=== PATIENT | male | born 2000 | race Caucasian/White ===

== ENCOUNTER 2024-01-01 03:59 | Emergency (ER) | payer MEDICAID ==
[~2024-01-01] VITALS: Ht 170.2 cm; Wt 79.5 kg
[2024-01-01 08:26] LABS: EOSINOPHILS % (AUTO) 0.3 % (0-6)
[2024-01-01 08:28] LABS: BASOPHILS % (AUTO) 0.5 % (0-1); HEMATOCRIT 45.8 % (42.0-52.0); HEMOGLOBIN 15.5 g/dl (14.0-17.9); LYMPHOCYTES # (AUTO) 1.8 X10'3 (1.1-4.8); LYMPHOCYTES % (AUTO) 20.3 % (21-51); MEAN CORPUSCULAR HEMOGLOBIN 29.3 PG (27.0-31.0); MEAN CORPUSCULAR HGB CONC 33.8 g/dL (33.0-36.5); MEAN CORPUSCULAR VOLUME 86.8 FL (78-98); MONOCYTES # (AUTO) 0.6 X10'3 (0-0.9); MONOCYTES % (AUTO) 6.6 % (2-12); NEUTROPHILS # (AUTO) 6.5 X10'3 (1.8-7.7); NEUTROPHILS % (AUTO) 72.3 % (42-75); PLATELET COUNT 228 X10'3 (140-440); RED BLOOD COUNT 5.27 X10'6 (4.70-6.10); RED CELL DISTRIBUTION WIDTH 12.9 % (11.5-14.5); WHITE BLOOD COUNT 9.1 X10'3 (4.5-11.0)
[2024-01-01 09:05] LABS: URINE AMPHETAMINE SCREEN NEGATIVE (Neg); URINE BARBITUATE SCREEN NEGATIVE (Neg); URINE BENZODIAZEPINES SCREEN NEGATIVE (Neg); URINE CANNABINOID SCREEN POSITIVE (Neg); URINE COCAINE SCREEN POSITIVE (Neg); URINE METHADONE SCREEN NEGATIVE (Neg); URINE OPIATE SCREEN NEGATIVE (Neg); URINE PHENCYCLIDINE SCREEN NEGATIVE (Neg)
[2024-01-01 09:18] LABS: ALBUMIN 4.1 G/DL (3.4-5.0); ANION GAP 8 (8-16); BLOOD UREA NITROGEN 10 MG/DL (7-18); BUN/CREATININE RATIO 10.4 (10.0-20.0); CALCIUM 9.5 MG/DL (8.5-10.1); CHLORIDE 101 MMOL/L (99-107); CREATININE 0.96 MG/DL (0.60-1.10); GLUCOSE 108 MG/DL (70-104); POTASSIUM 4.4 MMOL/L (3.5-5.1); SODIUM 139 MMOL/L (135-145); TOTAL CARBON DIOXIDE 30.4 MMOL/L (24-32); eCRCL 114 ML/MIN; eGFR > 90 ML/MIN
[2024-01-01 09:20] LABS: ETHANOL < 10 MG/DL (<10)
[2024-01-01 10:03] LABS: BILIRUBIN,URINE NEGATIVE (Neg); CLARITY,URINE CLOUDY (Clear); COLOR,URINE YELLOW (Yellow); GLUCOSE, URINE NEGATIVE (Neg); KETONES,URINE NEGATIVE (Neg); LEUKOCYTE ESTERASE ,URINE NEGATIVE (Neg); NITRITES, URINE NEGATIVE (Neg); OCCULT BLOOD,URINE NEGATIVE (Neg); PROTEIN,URINE NEGATIVE (Neg); UROBILINOGEN,URINE 0.2 E.U/dL (0.2-1.0)
[2024-01-01 10:07] LABS: UA COLLECTION TYPE NON-SPECIFIED
[2024-01-01 10:09] LABS: AMORPHOUS URATES 2+
[2024-01-01 10:10] LABS: BACTERIA,URINE FEW /HPF (Neg); MUCUS STRANDS MODERATE /LPF (Neg); RBC,URINE 0-2 /HPF (0-2); SQUAMOUS EPITHELIAL CELL,UR FEW /LPF (FEW); WBC,URINE 0-4 /HPF (0-4)
[2024-01-01] MEDS: docusate sod 100mg capsule PO ONE (19:55)
[2024-01-01] MEDS: docusate sod 250mg capsule PO ONE (19:56)
[2024-01-01] MEDS: acetaminophen 325mg tablet PO ONE (19:57)
[2024-01-01] MEDS: Melatonin 3mg tablet PO SCH (21:45)
[2024-01-02] MEDS: LORazepam 2 mg/ml vial IM ONE (12:53)
[2024-01-02] MEDS: haloperidol lactate 5mg/ml inj IM ONE (12:54)
[2024-01-02] MEDS: diphenhydrAMINE 50 mg/ml inj IM ONE (12:54)
[2024-01-02] MEDS ORDERED: haloperidol 5mg tablet PO PRN (13:40)
[2024-01-02] MEDS ORDERED: NO HOME MEDS (19:29)
[2024-01-03 17:37] VITALS: TEMP 98.2
[2024-01-03] MEDS: LORazepam 1 MG tablet PO PRN (19:14)
[2024-01-04 05:37] VITALS: BP 120/91; PULSE 65; O2SAT 98
[2024-01-04] MEDS: nicotine 21mg patch - 24 hr TD SCH (10:56)
[2024-01-04 11:00] VITALS: RESP 15
== END 2024-01-04 14:30 ==
LOC: ER 03:59
DX: F23 Brief psychotic disorder (principal); R41.0 Disorientation, unspecified; Z20.822 Contact with and (suspected) exposure to COVID-19
CPT/HCPCS: 36415; 70450; 80048; 80305; 80320; 81001; 85025; 87811; 96372; 99285; C2617; J1200; J1630; J2060

== ENCOUNTER 2025-04-10 14:49 | Emergency (ER) | payer MEDICAID ==
[~2025-04-10] VITALS: Ht 170.2 cm; Wt 57.8 kg
[~2025-04-10 14:49] MED LIST: NO HOME MEDS
--- NOTE | 2025-04-10 14:57 | Physician Documentation ---
History of Present Illness ~ Chief Complaint: Mental Health Eval Stated Complaint: MH Time Seen by MD: 15:05 OK to notify your PCP?: Yes Primary Medical Doctor: valery Source: patient Mode of Arrival: POV Exam Limitations: no limitations HPI 25-year-old male presents with mental health complaints of feeling stressed out and having his past come back up. He reports that people have been following him and talking about his past. He states that he has not taken any medications for mental health disorders. He has not been formally diagnosed with schizophrenia. He appears to be having visual hallucinations but no auditory hallucinations. He states that he has been seen by mental health last month but this is a different situation. He has thoughts of harming himself but does not have an active plan. Medication Reconciliation Allergies: Coded Allergies: No Known Allergies (Unverified , 02/19/25) Miscellaneous Medications Home Med List (No Home Medications), (Reported) Past Medical History Past Medical History: Schizophrenia Past Surgical History: noncontributory Review of Systems All Other Systems at this time: Reviewed and Negative Physical Exam Vital Signs: RN Vital Signs have been reviewed: Yes, Temperature: 97.7, Source: Temporal, Heart Rate: 107, Respiratory Rate: 16, BP: 143/89, Pulse Oximetry: 98, Weight: 57.750 Pulse Oximetry Reflects: adequate oxygenation Physical Exam General: Alert, no distress. HEENT: No injection, moist mucous membranes. Neck: Full range of motion. Respiratory: No respiratory distress, equal chest rise and fall. Chest: No accessory muscle use. Cardiovascular: Regular rate and rhythm. Gastrointestinal: Nondistended. Extremities: Normal range of motion, no deformity. Neurologic: Oriented x4. Psychiatric: Normal mood and affect. Skin: Normal color, warm and dry. Progress Results/Orders Results/Orders Vital Signs 04/10/25 04/10/25 04/10/25 04/11/25 14:51 15:18 18:45 05:23 Temp 97.7 97.0 Pulse 107 60 Resp 16 16 17 B/P (MAP) 143/89 107/71 (83) Pulse Ox 98 99 O2 Flow Rate 0 04/11/25 04/11/25 04/11/25 04/12/25 13:22 17:33 18:44 05:05 Temp 97.8 97.2 Pulse 83 54 Resp 16 14 14 B/P (MAP) 117/76 (90) 103/63 (76) Pulse Ox 99 98 O2 Flow Rate 0 04/12/25 08:45 Resp 16 B/P (MAP) Laboratory Tests Test 04/10/25 15:54 04/10/25 17:41 04/10/25 17:58 White Blood Count 5.4 Red Blood Count 4.62 L Hemoglobin 13.3 L Hematocrit 39.2 L Mean Corpuscular Volume 84.9 Mean Corpuscular Hemoglobin 28.8 Mean Corpuscular Hemoglobin Concent 33.9 Red Cell Distribution Width 14.6 H Platelet Count 230 Mean Platelet Volume 10.4 Neutrophils (%) (Auto) 57.5 Lymphocytes (%) (Auto) 29.9 Monocytes (%) (Auto) 9.5 Eosinophils (%) (Auto) 2.4 Basophils (%) (Auto) 0.7 Neutrophils # (Auto) 3.1 Lymphocytes # (Auto) 1.6 Monocytes # (Auto) 0.5 Eosinophils # (Auto) 0.1 Basophils # (Auto) 0.0 CBC Comment Sodium Level 138 Potassium Level 3.0 *L Chloride Level 102 Carbon Dioxide Level 30.3 Anion Gap 6 L Blood Urea Nitrogen 5 L Creatinine 1.04 Estimated GFR/1.73 m2 89 BUN/Creatinine Ratio 4.8 L Glucose Level 136 H Calcium Level 9.1 Albumin 3.3 L Thyroid Stimulating Hormone (TSH) 1.30 Chemistry Comments Ethyl Alcohol Level < 10 Urine Specimen Description Cln catch midstream Urine Color Yellow Urine Clarity Clear Urine pH 6.0 Urine Specific [place] 1.020 Urine Protein Negative Urine Glucose (UA) Negative Urine Ketones Negative Urine Occult Blood Negative Urine Nitrite Negative Urine Bilirubin Negative Urine Urobilinogen 4.0 H Urine Leukocyte Esterase Negative Volume Urine Centrifuged 10 ml Urine Comment Urine Opiates Screen Negative Urine Methadone Screen Negative Urine Fentanyl Screen Negative Urine Barbiturates Screen Negative Urine Phencyclidine Screen Negative Urine Amphetamines Screen Positive Urine Benzodiazepines Screen Negative Urine Cocaine Screen Negative Urine Cannabinoids Screen Negative Drug Screen Comment SARS-CoV-2 Antigen (Rapid) Negative Medical Decision Making Findings Today at 09:51 hours Clinical Status:unchanged Mental Status: Appearance: No change Behavior: Stable Mood/Affect: No change Thought Process: No change Insight/Judgment: No change Suicidal/Homicidal Ideation: Continues to be on hold Vital signs stable Physical Examination: Unchanged Medications Administered: None Treatment Plan: Continue to monitor Continue current medications Reassess for changes in mental status Plan for next steps (e.g., awaiting placement, consulting psychiatry, etc.) Disposition: Not determine yet Patient remains on hold for psychiatric evaluation/placement. No acute changes in condition. Patient remains cooperative Plan to reassess during next shift. April 12, 2025 The patient is accepted at [facility] for further evaluation and treatment. Departure Impression: Primary Impression: Depression Condition: Stable Additional Instructions: Transfer orders for [facility]: At this time there is no evidence of an emergent medical condition that would preclude (admission/transfer) to a psychiatric unit via [facility] protocol for further psychiatric, as well as medical evaluation and treatment. At this time I have no reason to believe that transfer via [facility] protocol would have serious medical compromise in the patient's health. Referrals: NO PRIMARY CARE PROVIDER (PCP) Additional Comment Medical Screen Exam This patient recieved a medical screening examination. After reviewing the individual's medical complaints with presenting symptoms and performing an appropriate physical examination, it was determined that no immediate life- threatening emergency medical condition is present. This individual is also not a women having contractions. Signature Scribe Signature: g Attestation: Scribed for Jessica Ambrose Speech Language Pathology Assistant by Jessica Yoo NP . 04/11/25 13:38 NAKUL DARBY Apr 10, 2025 14:57 JESSICA AMBROSE NP Apr 10, 2025 17:17 ALMAZ CHURCH MD Apr 11, 2025 09:52
[2025-04-10 16:06] LABS: EOSINOPHILS # (AUTO) 0.1 X10'3 (0-0.9); MONOCYTES # (AUTO) 0.5 X10'3 (0-0.9)
[2025-04-10 16:15] LABS: BASOPHILS % (AUTO) 0.7 % (0-1); EOSINOPHILS % (AUTO) 2.4 % (0-6); HEMATOCRIT 39.2 % (42.0-52.0); HEMOGLOBIN 13.3 g/dl (14.0-17.9); LYMPHOCYTES # (AUTO) 1.6 X10'3 (1.1-4.8); LYMPHOCYTES % (AUTO) 29.9 % (21-51); MEAN CORPUSCULAR HEMOGLOBIN 28.8 PG (27.0-31.0); MEAN CORPUSCULAR HGB CONC 33.9 g/dL (33.0-36.5); MEAN CORPUSCULAR VOLUME 84.9 FL (78-98); MEAN PLATELET VOLUME 10.4 FL (7.4-10.4); MONOCYTES % (AUTO) 9.5 % (2-12); NEUTROPHILS # (AUTO) 3.1 X10'3 (1.8-7.7); NEUTROPHILS % (AUTO) 57.5 % (42-75); PLATELET COUNT 230 X10'3 (140-440); RED BLOOD COUNT 4.62 X10'6 (4.70-6.10); RED CELL DISTRIBUTION WIDTH 14.6 % (11.5-14.5); WHITE BLOOD COUNT 5.4 X10'3 (4.5-11.0)
[2025-04-10 16:33] LABS: ALBUMIN 3.3 G/DL (3.4-5.0); ANION GAP 6 (8-16); BLOOD UREA NITROGEN 5 MG/DL (7-18); BUN/CREATININE RATIO 4.8 (10.0-20.0); CALCIUM 9.1 MG/DL (8.5-10.1); CHLORIDE 102 MMOL/L (99-107); CREATININE 1.04 MG/DL (0.60-1.10); GLUCOSE 136 MG/DL (70-104); SODIUM 138 MMOL/L (135-145); TOTAL CARBON DIOXIDE 30.3 MMOL/L (24-32); eCRCL 90 ML/MIN; eGFR 89 ML/MIN
[2025-04-10 16:41] LABS: ETHANOL < 10 MG/DL (<10)
[2025-04-10] MEDS: potassium Cl 20 mEq SR tablet PO STA (17:30)
[2025-04-10 18:08] LABS: BILIRUBIN,URINE NEGATIVE (Neg); CLARITY,URINE CLEAR (Clear); COLOR,URINE YELLOW (Yellow); GLUCOSE, URINE NEGATIVE (Neg); KETONES,URINE NEGATIVE (Neg); LEUKOCYTE ESTERASE ,URINE NEGATIVE (Neg); NITRITES, URINE NEGATIVE (Neg); OCCULT BLOOD,URINE NEGATIVE (Neg); PROTEIN,URINE NEGATIVE (Neg)
[2025-04-10 18:11] LABS: URINE AMPHETAMINE SCREEN POSITIVE (Neg); URINE BARBITUATE SCREEN NEGATIVE (Neg); URINE BENZODIAZEPINES SCREEN NEGATIVE (Neg); URINE CANNABINOID SCREEN NEGATIVE (Neg); URINE COCAINE SCREEN NEGATIVE (Neg); URINE METHADONE SCREEN NEGATIVE (Neg); URINE OPIATE SCREEN NEGATIVE (Neg); URINE PHENCYCLIDINE SCREEN NEGATIVE (Neg)
[2025-04-10 18:17] LABS: UA COLLECTION TYPE CLN CATCH MIDSTREAM
[2025-04-11] MEDS: OLANZapine 2.5MG tablet PO ONE (20:35)
[2025-04-12 09:46] VITALS: BP 103/63; PULSE 54; RESP 14; TEMP 97.2; O2SAT 98
== END 2025-04-12 09:51 ==
LOC: ER 14:50
DX: F20.9 Schizophrenia, unspecified (principal); F32.A Depression, unspecified; Z20.822 Contact with and (suspected) exposure to COVID-19
CPT/HCPCS: 36415; 80048; 80305; 80320; 81003; 84443; 85025; 87811; 99284; 99285